=== PATIENT | male | born 1990 | race African-American/Black ===

== ENCOUNTER 2023-10-26 20:28 | Emergency (ER) | payer OTHER ==
[~2023-10-26] VITALS: Ht 180.3 cm; Wt 81.8 kg
[2023-10-26 21:43] VITALS: BP 142/87; PULSE 64; RESP 15; TEMP 97.9
[2023-10-27] MEDS ORDERED: CYCL-448 PO (00:38)
== END 2023-10-27 00:49 | disposition home or self-care (01) ==
LOC: EMS 20:29
DX: S13.4XXA Sprain of ligaments of cervical spine, initial encounter (principal); V89.2XXA Person injured in unspecified motor-vehicle accident, traffic, initial encounter; Y93.89 Activity, other specified; Y92.89 Other specified places as the place of occurrence of the external cause; Y99.8 Other external cause status
CPT/HCPCS: 72040; 99283